=== PATIENT | female | born 1950 | race Caucasian/White ===

== ENCOUNTER → 2016-04-01 | Day surgery (SDC) | payer BC ==
[~2016-04-01] VITALS: Ht 149.9 cm; Wt 71.5 kg
[~2016-04-01] MED LIST: ACETAMINOPHEN 325 MG TAB ONE; ACETAMINOPHEN 325 MG TAB PO ONE; BACITRACIN TOP OINT 15 GM TUBE ONE; BUPIVACAINE HCL PF 0.5% 30 ML VIAL ONE; DEXAMETHASONE SOD PHOS 4 MG/ML VIAL ONE; DO NOT ADM ANY ANTICOAGULANT DRUGS XX PRN; FAMOTIDINE 20 MG/2 ML VIAL ONE; HYDROmorphone HCL PF 1 MG/ML VIAL IV PRN; INSULIN HUMAN REGULAR 1,000 UNITS/10 ML VIAL SQ PRN; LACTATED RINGER'S 1000 ML INJ 1,000 ML IV ONE; LACTATED RINGER'S 1000 ML INJ 500 ML IV SCH; LACTATED RINGER'S 1000 ML IV SCH; LISI2.5T3 PO; METF500T PO; METOPROLOL TARTRATE 25 MG TAB PO PRN; MIDAZOLAM HCL 2 MG/2 ML VIAL ONE; OMEGCAP PO; OMEP20TA PO; ONDANSETRON HCL 4 MG/2 ML VIAL IV PUSH ONE; ONDANSETRON HCL 4 MG/2 ML VIAL IV PUSH PRN; PRAV20TA2 PO; PROPOFOL 200 MG/20 ML AMP IV ONE; SODIUM CHLORID 0.9% 500 ML IV SCH; SODIUM CHLORIDE 0.9% INJ 100 ML ONE; SODIUM CHLORIDE FLUSH BID IVF SCH; SODIUM CHLORIDE FLUSH PRN IVF; ceFAZolin 1,000 MG/NS 100 ML IV ONE; ceFAZolin INJ 1,000 MG VIAL ONE
[2016-04-01 11:05] VITALS: BP 168/83; PULSE 84; RESP 16; TEMP 99.1; O2SAT 96
[2016-04-01 18:30] VITALS: BP 146/72; PULSE 89; RESP 16; TEMP 97.5; O2SAT 96
--- NOTE | 2016-04-04 23:54 | EKG ---
Date Performed: 04/01/2016 Time Performed: 11:41:44 PTAGE: 66 years EKG: Sinus rhythm NORMAL ECG NO PREVIOUS TRACING DOCTOR: Casey Dillard Interpretating Date/Time 04/04/2016 23:53:14
--- NOTE | 2016-04-05 16:27 | MP ---
cc: IVETTE BLACKWELL DATE OF SURGERY 04/01/2016 PREOPERATIVE DIAGNOSIS Contracture and deformity left small finger. POSTOPERATIVE DIAGNOSIS Contracture and deformity left small finger. PROCEDURE Amputation left small finger through the proximal interphalangeal joint with neurectomies and direct closure left small finger. SURGEON Dr. Ivette Blackwell ANESTHESIA General and local. TOURNIQUET TIME 25 minutes at 250 mmHg. SPECIMEN For pathology. INDICATIONS FOR PROCEDURE Sandy Mcintosh is a very pleasant 65-year-old right-hand dominant female who states that she had surgery on the left small finger 12-15 years ago in [place] with resulting deformity of the left small finger. She presented to the office and requested amputation of the finger. I had a long discussion with the patient and saw her on a second occasion to discuss treatment options including contracture release of the finger, amputation, fusion and again she requested amputation. She understands she is at risk for wound complications, infection, phantom pain, stiffness, difficulty flexing the finger, need for additional surgeries and again she requested amputation of the left small finger through the proximal interphalangeal joint. The patient was also offered amputation through the metacarpal phalangeal joint as well as ray resection. She understands that she will not have good flexion of the PIP joint. This was discussed with the patient and also in front of her family. DESCRIPTION OF PROCEDURE The patient was identified in the preoperative holding area and the appropriate extremity was marked. The patient was offered a regional block which she declined. The patient was taken back to the operating room where anesthesia was induced. The left upper extremity was prepped and draped in normal sterile fashion. 8 cc of 0.25% Marcaine with no epinephrine was used to perform local anesthesia over the small finger. The left small finger was amputated through the proximal interphalangeal joint. There was very significant contracture of the PIP joint as well as arthritis of the PIP joint. The flexor tendons were incised. The extensor tendon was incised. Neurectomies were performed and direct closure was performed. There was some scar tissue volarly over the finger. This was closed and there was less than 2-second capillary refill to the flap. Tourniquet was released. Hemostasis obtained. The patient was placed into a bulky dressing and awoken from anesthesia without any complications. I will see her this week for removal of the dressing and gentle range of motion. She will call immediately with any concerns. MD CAMPOS Bills /10:35 PM /4:10 PM [facility]ITALAnaya
== END | disposition home or self-care (01) ==
LOC: HSDC 10:18
PROVIDERS: ATTEND Orthopaedic Surgery
DX: M24.542 Contracture, left hand (principal); M20.002 Unspecified deformity of left finger(s); I10 Essential (primary) hypertension; E78.5 Hyperlipidemia, unspecified
CPT/HCPCS: 01830; 26951; 88305; 88311; 93005; J0690; J1100; J2250; J2405; J3010; J7120

== ENCOUNTER 2016-12-09 23:31 | Emergency (ER) | payer BC ==
[~2016-12-09] VITALS: Ht 152.4 cm; Wt 67.2 kg
[~2016-12-09 23:31] MED LIST changes: -ACETAMINOPHEN 325 MG TAB ONE; -ACETAMINOPHEN 325 MG TAB PO ONE; -BACITRACIN TOP OINT 15 GM TUBE ONE; -BUPIVACAINE HCL PF 0.5% 30 ML VIAL ONE; -DEXAMETHASONE SOD PHOS 4 MG/ML VIAL ONE; -DO NOT ADM ANY ANTICOAGULANT DRUGS XX PRN; -FAMOTIDINE 20 MG/2 ML VIAL ONE; -HYDROmorphone HCL PF 1 MG/ML VIAL IV PRN; -INSULIN HUMAN REGULAR 1,000 UNITS/10 ML VIAL SQ PRN; -LACTATED RINGER'S 1000 ML INJ 1,000 ML IV ONE; -LACTATED RINGER'S 1000 ML INJ 500 ML IV SCH; -LACTATED RINGER'S 1000 ML IV SCH; -METOPROLOL TARTRATE 25 MG TAB PO PRN; -MIDAZOLAM HCL 2 MG/2 ML VIAL ONE; -ONDANSETRON HCL 4 MG/2 ML VIAL IV PUSH ONE; -ONDANSETRON HCL 4 MG/2 ML VIAL IV PUSH PRN; -PROPOFOL 200 MG/20 ML AMP IV ONE; -SODIUM CHLORID 0.9% 500 ML IV SCH; -SODIUM CHLORIDE 0.9% INJ 100 ML ONE; -SODIUM CHLORIDE FLUSH BID IVF SCH; -SODIUM CHLORIDE FLUSH PRN IVF; -ceFAZolin 1,000 MG/NS 100 ML IV ONE; -ceFAZolin INJ 1,000 MG VIAL ONE
[2016-12-09 23:47] VITALS: BP 185/85; PULSE 85; RESP 18; TEMP 99; O2SAT 97
--- NOTE | 2016-12-10 00:20 | RADRPT ---
EXAM DATE/TIME: 12/09/2016 23:51 [facility] COMPARISON: No previous studies available for comparison. INDICATIONS : Trauma, fall. RADIATION DOSE: 56.35 CTDIvol (mGy) MEDICAL HISTORY : Diabetes mellitus type 2. Brain tumor. SURGICAL HISTORY : Brain tumor sx. ENCOUNTER: Initial ACUITY: 1 day PAIN SCALE: 7/10 LOCATION: cranial TECHNIQUE: Multiple contiguous axial images were obtained of the head. Using automated exposure control and adj ustment of the mA and/or kV according to patient size, radiation dose was kept as low as reasonably a chievable to obtain optimal diagnostic quality images. DICOM format image data is available electro nically for review and comparison. FINDINGS: Postoperative frontal craniotomy with some mild encephalomalacia in the inferior medial frontal lobes bilaterally. Reportedly there is history of brain tumor. Currently no mass effect or shift. No hydro cephalus. No abnormal extra-axial fluid. CONCLUSION: 1. Postoperative changes in the frontal lobes with minimal encephalomalacia. No acute findings. Saul Rincon MD on December 10, 2016 at 0:15 Board Certified Radiologist. This report was verified electronically.
--- NOTE | 2016-12-10 00:20 | PD ---
HPI Chief Complaint: Fall Time Seen by Provider: 23:46 Travel History International Travel<30 days: No Contact w/Intl Traveler<30days: No Traveled to known affect area: No History of Present Illness HPI 66 old woman hypertension and diabetes who presents to the emergency department after she fell backward in her recliner chair trying to pull the shades down. She has severe pain on the right side of her jaw with swelling and tenderness. She also has midline neck pain. No LOC. She otherwise has been feeling generally well and healthy. Symptoms at onset just prior to arrival, and then steady since then. History Past Medical History Narrative Medical Hypertension Type 2 diabetes Tetanus Vaccination: Unknown Influenza Vaccination: No Social History Alcohol Use: No Tobacco Use: No Allergies-Medications (Allergen,Severity, Reaction): Coded Allergies: diatrizoate meglumine (Unverified Allergy, Severe, Hives, 12/09/16) gadobenic acid (Unverified Allergy, Severe, Hives, 12/09/16) gadodiamide (Unverified Allergy, Severe, Hives, 12/09/16) gadoteridol (Unverified Allergy, Severe, Hives, 12/09/16) iodixanol (Unverified Allergy, Severe, Hives, 12/09/16) iohexol (Unverified Allergy, Severe, Hives, 12/09/16) propoxyphene (Unverified Allergy, Severe, Chest Pain, 12/09/16) tramadol (Unverified Allergy, Severe, FACIAL ITCHING, NIGHTMARES, 12/09/16) ketorolac (Verified Allergy, Unknown, 12/09/16) Reported Meds & Prescriptions Reported Meds & Active Scripts Active Reported [place]-3 Fish Oil/Vitamin (Fish Oil-Cholecalciferol) 1,000-1,000 Mg Cap 1 Cap PO DAILY Omeprazole 20 Mg Tab 20 Mg PO DAILY Pravastatin 20 Mg Tab 20 Mg PO HS Metformin (Metformin HCl) 500 Mg Tab 500 Mg PO BIDPC With meals Lisinopril 2.5 Mg Tab 2.5 Mg PO DAILY Review of Systems Except as stated in HPI: all other systems reviewed are Neg Physical Exam Narrative GENERAL: Well-appearing 66 old woman, no acute distress. In spinal mobilization. SKIN: Focused skin assessment warm/dry. HEAD: Atraumatic. Normocephalic. EYES: Pupils equal and round. No scleral icterus. No injection or drainage. ENT: Normal gross appearance of the face. Is nauseous asymmetry or swelling. She has pain and tenderness about the right superior mandible near the lutheran. There is a small abrasion over the right lutheran as well. She states her teeth feel like they're normal in alignment. She can talk normally. NECK: Mild midline tenderness. No step-offs or deformities. No cervical collar in place but she was in blocks with a towel. CARDIOVASCULAR: Regular rate and rhythm. No murmur appreciated. RESPIRATORY: No accessory muscle use. Clear to auscultation. Breath sounds equal bilaterally. GASTROINTESTINAL: Abdomen soft, non-tender, nondistended. Hepatic and splenic margins not palpable. MUSCULOSKELETAL: No obvious deformities. No edema. NEUROLOGICAL: Awake and alert. No obvious cranial nerve deficits. Motor grossly within normal limits. Normal speech. PSYCHIATRIC: Appropriate mood and affect; insight and judgment normal. Data Data Last Documented VS Vital Signs Date Time Temp Pulse Resp B/P (MAP) Pulse Ox O2 Delivery O2 Flow Rate FiO2 12/10/16 00:25 75 16 162/67 (98) 97 Room Air 12/09/16 23:[address] Brain W/O Iv Contrast(Rout) (12/09/16 ) Ct Facial Bones W/O Iv Cont (12/09/16 ) Ct Cerv Spine W/O Contrast (12/09/16 ) Apply Cervical Collar (12/09/16 23:46) MDM Medical Decision Making Medical Screen Exam Complete: Yes Emergency Medical Condition: Yes Interpretation(s) CT head, C-spine, face negative. Differential Diagnosis Head injury, face injury, nuclear injury, other Narrative Course Medical decision-making 66 year old woman who presents emergency Department with face and head injury of the right side. She looks well. We'll check CT head face and neck. Reassess. Additional Instructions: Take Lortab if needed for severe pain. Use caution as it can cause drowsiness or falls. Use acetaminophen by itself as needed for [id number]-on-[id number] pain. Do not take more than 3 g of acetaminophen in total daily. Follow-up with her primary doctor for not completely well in 7 days. Med/Other Pt SpecificInfo: Prescription(s) given Scripts Hydrocodone-Acetaminophen (Lortab) 5-325 Mg Tab 1 TAB PO Q6H Y for PAIN, #10 TAB 0 Refills Prov: Caesar Velez MD 12/10/16 Disposition: 01 DISCHARGE HOME Condition: Stable Caesar Velez MD Dec 10, 2016 00:20
--- NOTE | 2016-12-10 00:22 | RADRPT ---
EXAM DATE/TIME: 12/09/2016 23:51 [facility] COMPARISON: No previous studies available for comparison. INDICATIONS : Trauma, fall. RADIATION DOSE: 25.36 CTDIvol (mGy) MEDICAL HISTORY : Diabetes mellitus type 2. SURGICAL HISTORY : None. ENCOUNTER: Initial ACUITY: 1 day PAIN SCORE: 5/10 LOCATION: Right facial TECHNIQUE: Volumetric scanning of the facial bones was performed. Using automated exposure control and adjustme nt of the mA and/or kV according to patient size, radiation dose was kept as low as reasonably achiev able to obtain optimal diagnostic quality images. DICOM format image data is available electronicall y for review and comparison. FINDINGS: ORBITS: The orbital and infraorbital osseous structures are intact. The retroconal structures have a normal configuration. No radiopaque foreign bodies are seen. NASAL BONE: The nasal bone and maxillary spine are intact ZYGOMATIC ARCHES: Symmetric without evidence of fracture. SINUSES: The maxillary, ethmoid and frontal sinuses are intact. No air-fluid levels seen. NASAL CAVITY: The nasal septum is intact and midline. The lacrimal ducts are intact. SOFT TISSUES: No radiopaque foreign bodies seen. No soft-tissue swelling is seen. INTRACRANIAL: No intracranial air seen. CRIBIFORM PLATE: Grossly intact. CONCLUSION: 1. Postoperative changes of previous frontal craniotomy. No acute bony abnormalities. Saul Rincon MD on December 10, 2016 at 0:19 Board Certified Radiologist. This report was verified electronically.
[2016-12-10 00:25] VITALS: BP 162/67; PULSE 75; RESP 16; O2SAT 97
--- NOTE | 2016-12-10 00:26 | RADRPT ---
EXAM DATE/TIME: 12/09/2016 23:52 [facility] COMPARISON: No previous studies available for comparison. INDICATIONS : Trauma, fall. RADIATION DOSE: 25.64 CTDIvol (mGy) MEDICAL HISTORY : Diabetes mellitus type 2. SURGICAL HISTORY : None. ENCOUNTER: Initial ACUITY: 1 day PAIN SCALE: 5/10 LOCATION: neck TECHNIQUE: Volumetric scanning of the cervical spine was performed. Multiplanar reconstructions in the sagittal, coronal and oblique axial planes were performed. Using automated exposure control and adjustment o f the mA and/or kV according to patient size, radiation dose was kept as low as reasonably achievable to obtain optimal diagnostic quality images. DICOM format image data is available electronically f or review and comparison. FINDINGS: No acute fracture. No prevertebral soft tissue swelling. There is a grade 1 anterolisthesis of C4 on C5 without significant bony canal stenosis. Mild facet arthropathy. CONCLUSION: 1. No acute fracture. Grade 1 anterolisthesis of C4 and C5 which appears degenerative. Saul Rincon MD on December 10, 2016 at 0:21 Board Certified Radiologist. This report was verified electronically.
[2016-12-10 01:20] VITALS: BP 130/60; PULSE 72; RESP 16; O2SAT 97
[2016-12-10] MEDS ORDERED: HYDR-3533 PO (01:20)
[2016-12-10] MEDS ORDERED: ACETAMINOPHEN/HYDROcodone 325 MG/5 MG TAB PO ONE (01:45)
== END 2016-12-10 02:00 | disposition home or self-care (01) ==
LOC: NEPE 23:31
DX: M54.2 Cervicalgia (principal); R68.84 Jaw pain; W19.XXXA Unspecified fall, initial encounter; Y92.009 Unspecified place in unspecified non-institutional (private) residence as the place of occurrence of the external cause; I10 Essential (primary) hypertension; E11.9 Type 2 diabetes mellitus without complications
CPT/HCPCS: 70450; 70486; 72125; 99285